=== PATIENT | female | born 1985 | race Hispanic/Latino ===

== ENCOUNTER 2016-12-28 09:33 | Day surgery (SDC) | payer OTHER ==
[2016-12-28 10:27] VITALS: BMI 37.0
[2016-12-28] MEDS ORDERED: Midazolam 2 MG/2 ML VIAL ONE (11:51)
[2016-12-28] MEDS ORDERED: Lidocaine Hydrochloride 5 ML INJ ONE (12:54)
[2016-12-28] MEDS ORDERED: Propofol 10 mg/ml Inj (20 ML) ONE (12:54)
[2016-12-28 13:40] VITALS: TEMP 98.9
[2016-12-28 14:55] VITALS: O2SAT 100
[2016-12-28 15:20] VITALS: BP 97/57; PULSE 77; RESP 18
== END 2016-12-28 14:40 | disposition home or self-care (01) ==
LOC: C.ENDO 09:33
PROVIDERS: ATTEND Internal Medicine Gastroenterology
DX: D64.9 Anemia, unspecified (principal); K64.8 Other hemorrhoids; R10.13 Epigastric pain; K29.70 Gastritis, unspecified, without bleeding
CPT/HCPCS: 43239; 45380; 84703; 88305; 88313; 88342; J2250; J2704

== ENCOUNTER 2017-06-24 16:23 | Emergency (ER) | payer OTHER ==
[2017-06-24 16:24] VITALS: BMI 37.0
[2017-06-24 16:42] VITALS: RESP 18
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
[2017-06-24] MEDS ORDERED: Oxycodone/Acetaminophen 5/325 mg Tab PO STA (18:04)
[2017-06-24 18:08] VITALS: BP 136/82; PULSE 67; TEMP 97.7
[2017-06-24] MEDS ORDERED: Oxycodone/Acetaminophen 5/325 mg Tab ONE (18:09)
[2017-06-24 18:12] VITALS: O2SAT 99
== END 2017-06-24 18:53 | disposition home or self-care (01) ==
LOC: C.ER 16:23
DX: T14.8XXA Other injury of unspecified body region, initial encounter (principal); V89.2XXA Person injured in unspecified motor-vehicle accident, traffic, initial encounter

== ENCOUNTER 2017-09-16 16:29 | Emergency (ER) | payer OTHER ==
[2017-09-16 16:29] VITALS: BMI 37.0
[2017-09-16 16:43] VITALS: RESP 18; TEMP 97.9; O2SAT 96
--- NOTE | 2017-09-16 18:34 | C.PDOC ---
History Of Present Illness 32 year old female presets to the ED for evaluation of left shoulder pain after slipping and falling yesterday. Patient reports she took motrin for pain which helped. Patient is right hand dominant. Patient decided to come in today because she noticed some bruising in her left upper arm. Patient denies LOC, head injury, headache, blurry vision. Time Seen by Provider: 09/16/17 17:17 Chief Complaint (Nursing): Upper Extremity Problem/Injury History Per: Patient History/Exam Limitations: no limitations Onset/Duration Of Symptoms: Days Current Symptoms Are (Timing): Still Present Quality: "Pain" Exacerbating Factor(s): Movement Recent travel outside of the [place]: No Additional History Per: Patient Past Medical History Reviewed: Historical Data, Nursing Documentation, Vital Signs Vital Signs: Last Vital Signs Temp 97.9 F 09/16/17 16:40 Pulse 57 L 09/16/17 16:40 Resp 18 09/16/17 16:40 BP 128/83 09/16/17 16:40 Pulse Ox 96 09/16/17 18:34 - Medical History PMH: Anemia, Fractures (left wrist) Denies: Colonic Polyps, Sleep Apnea, TIA Surgical History: Endoscopy - [facility] Procedures APPLICATION OF SPLINT (06/03/13) CLOSURE SKIN & SUBCUTANEOUS NEC (11/06/13) TETANUS TOXOID ADMINIST (11/06/13) Family History: States: Unknown Family Hx - Social History Hx Tobacco Use: Yes Hx Alcohol Use: Yes Hx Substance Use: No - Immunization History Hx Tetanus Toxoid Vaccination: No Hx Influenza Vaccination: Yes Hx Pneumococcal Vaccination: No Review Of Systems Constitutional: Negative for: Fever, Chills Eyes: Negative for: Vision Change Cardiovascular: Negative for: Chest Pain Respiratory: Negative for: Cough, Shortness of Breath Gastrointestinal: Negative for: Abdominal Pain Musculoskeletal: Positive for: Shoulder Pain, Arm Pain Skin: Negative for: Rash Neurological: Negative for: Weakness, Numbness Physical Exam - Physical Exam Appears: Non-toxic, No Acute Distress Skin: Normal Color, Warm, Dry Head: Atraumatic, Normacephalic Eye(s): bilateral: Normal Inspection Nose: No Discharge Oral Mucosa: Moist Neck: Normal ROM, Supple Extremity: Normal ROM, No Tenderness, Capillary Refill (< 2 seconds), No Deformity, No Swelling, Other (bruising left proximal humerous, neurovascular intact) Pulses: Left Radial: Normal, Right Radial: Normal Neurological/Psych: Oriented x3, Normal Motor, Normal Sensation Gait: Steady ED Course And Treatment O2 Sat by Pulse Oximetry: 96 (On RA) Pulse Ox Interpretation: Normal - Other Rad Humerus X-Ray X-Ray: Interpreted by Me, Viewed By Me Interpretation: Preliminary read shows no fracture Forearm X-Ray X-Ray: Interpreted by Me, Viewed By Me Interpretation: Preliminary read shows no fracture Medical Decision Making Medical Decision Making: Assessment: arm contusion Plan: * Motrin 600 mg PO * Tylenol 650 mg PO * Left humerus X-Ray * Left forearm X-Ray Patient was placed in an arm sling and D/C Homes. Disposition Counseled Patient/Family Regarding: Studies Performed, Diagnosis, Need For Followup, Rx Given - Disposition Referrals: [facility] [Outside] Disposition: HOME/ ROUTINE Disposition Time: 18:32 Condition: STABLE Additional Instructions: follow up with your doctor or medical clinic in 2 days call to make an appointment take pain medication as prescribed return to hospital if symptoms worsens or progress ice, elevate and rest arm Prescriptions: Naproxen [Naprosyn] 500 mg PO BID PRN #16 tab PRN Reason: Pain, Moderate (4-7) traMADol [Ultram] 50 mg PO TID PRN #10 tab PRN Reason: Pain, Moderate (4-7) Instructions: Contusion (DC) Forms: [facility] (Yakut), General Discharge Instructions - Clinical Impression Clinical Impression: Contusion - Scribe Statement The provider has reviewed the documentation as recorded by the Scribe Mane Aguirre All medical record entries made by the Scribe were at my direction and personally dictated by me. I have reviewed the chart and agree that the record accurately reflects my personal performance of the history, physical exam, medical decision making, and the department course for this patient. I have also personally directed, reviewed, and agree with the discharge instructions and disposition.
[2017-09-16 18:42] VITALS: BP 120/80; PULSE 61
--- NOTE | 2017-09-17 08:28 | RAD ---
PROCEDURE: Radiographs of the Left Forearm HISTORY: Fall COMPARISON: None available. TECHNIQUE: Frontal and lateral views obtained. FINDINGS: BONES: No acute fracture or destructive lesion. Bone alignment and mineralization are normal. JOINT SPACES: Unremarkable. OTHER FINDINGS: None. IMPRESSION: No acute fracture.
--- NOTE | 2017-09-17 08:29 | RAD ---
PROCEDURE: Radiographs of the left humerus. HISTORY: Fall COMPARISON: None. FINDINGS: BONES: Bone alignment and mineralization are normal. There is no acute displaced fracture or bone destruction. SOFT TISSUES: Normal. OTHER FINDINGS: None. IMPRESSION: No acute fracture.
== END 2017-09-16 18:43 | disposition home or self-care (01) ==
LOC: C.ER 16:29
DX: S40.022A Contusion of left upper arm, initial encounter (principal); W01.0XXA Fall on same level from slipping, tripping and stumbling without subsequent striking against object, initial encounter